=== PATIENT | male | born 1970 | race African-American/Black ===

== ENCOUNTER 2019-06-28 16:56 | Emergency (ER) | payer OTHER ==
[~2019-06-28] VITALS: Ht 182.9 cm; Wt 102.1 kg
[2019-06-28] MEDS ORDERED: LISINOPRIL20 MG PO (17:11)
[2019-06-28] MEDS ORDERED: HYDROCHLOROTHIA25 M2 PO (17:11)
[2019-06-28 17:19] LABS: HEMOGLOBIN 18.4 gm/dL (14.0-18.0); MCH 29.4 pg (26.0-34.0); MCV 86.6 fL (80.0-100.0); RBC 6.24 mil/uL (4.50-6.00); RDW 13.7 % (10.5-14.5); WBC 6.3 thou/uL (4.0-11.0)
[2019-06-28 17:29] LABS: CALCIUM 10.1 mg/dL (8.5-10.1); CREATININE 1.2 mg/dL (0.7-1.3)
[2019-06-28 17:32] LABS: INR 1.1; PROTIME 11.2 Seconds (9.3-11.4)
[2019-06-28 18:44] VITALS: BP 163/112
== END 2019-06-28 18:48 | disposition short-term general hospital (02) ==
LOC: ER 16:56
PROVIDERS: Physician Assistant
DX: H40.212 Acute angle-closure glaucoma, left eye (principal); I10 Essential (primary) hypertension; M10.9 Gout, unspecified; F17.210 Nicotine dependence, cigarettes, uncomplicated

== ENCOUNTER 2019-07-25 01:35 | Emergency (ER) | payer OTHER ==
[~2019-07-25] VITALS: Ht 177.8 cm; Wt 102.1 kg
[~2019-07-25 01:35] MED LIST: HYDROCHLOROTHIA25 M2 PO; LISINOPRIL20 MG PO
[2019-07-25] MEDS ORDERED: NORCO 5-325 TA1 EAC1 PO (03:49)
[2019-07-25] MEDS ORDERED: LISINOPRIL20 MG PO (03:54)
[2019-07-25] MEDS ORDERED: HYDROCHLOROTHIA25 M2 PO (03:54)
[2019-07-25 04:10] VITALS: BP 109/72
== END 2019-07-25 04:12 | disposition home or self-care (01) ==
LOC: ER 01:35
DX: H40.9 Unspecified glaucoma (principal); I10 Essential (primary) hypertension; M10.9 Gout, unspecified; F17.210 Nicotine dependence, cigarettes, uncomplicated

== ENCOUNTER 2019-07-27 03:57 | Emergency (ER) | payer OTHER ==
[~2019-07-27] VITALS: Ht 175.3 cm; Wt 102.1 kg
[~2019-07-27 03:57] MED LIST changes: +NORCO 5-325 TA1 EAC1 PO
[2019-07-27 05:51] VITALS: BP 134/95
== END 2019-07-27 05:52 | disposition home or self-care (01) ==
LOC: ER 03:57
DX: H40.9 Unspecified glaucoma (principal); I10 Essential (primary) hypertension; M10.9 Gout, unspecified; F17.210 Nicotine dependence, cigarettes, uncomplicated

== ENCOUNTER 2019-10-26 16:44 | Emergency (ER) | payer OTHER ==
[~2019-10-26] VITALS: Ht 180.3 cm; Wt 100.7 kg
[2019-10-26] MEDS ORDERED: HYDROCHLOROTHIA25 M2 PO (17:13)
[2019-10-26] MEDS ORDERED: ZESTRIL40 MG PO (17:13)
[2019-10-26 17:31] VITALS: BP 131/87
== END 2019-10-26 17:31 | disposition home or self-care (01) ==
LOC: ER 16:44
DX: I10 Essential (primary) hypertension (principal); M10.9 Gout, unspecified; F17.210 Nicotine dependence, cigarettes, uncomplicated

== ENCOUNTER 2020-01-19 14:04 | Emergency (ER) | payer OTHER ==
[~2020-01-19] VITALS: Ht 180.3 cm; Wt 104.3 kg
[~2020-01-19 14:04] MED LIST changes: +ZESTRIL40 MG PO
[2020-01-19 14:47] LABS: ABSOLUTE NEUTROPHILS 8.1 thou/uL (1.4-8.2); BASOPHILS 0.5 % (0.0-2.0); EOSINOPHILS 0.1 % (0.0-3.0); HEMOGLOBIN 16.8 gm/dL (14.0-18.0); LYMPHOCYTES 11.9 % (24.0-44.0); MCH 30.1 pg (26.0-34.0); MCHC 34.9 g/dL (28.0-37.0); MCV 86.3 fL (80.0-100.0); MONOCYTES 11.3 % (1.0-8.0); PLATELET COUNT 364 thou/uL (150-400); POLYS 76.2 % (36.0-66.0); RBC 5.57 mil/uL (4.50-6.00); RDW 13.8 % (10.5-14.5); WBC 10.6 thou/uL (4.0-11.0)
[2020-01-19 14:58] LABS: CALCIUM 9.3 mg/dL (8.5-10.1); CREATININE 1.3 mg/dL (0.7-1.3); POTASSIUM 3.4 mmol/L (3.5-5.1)
[2020-01-19] MEDS ORDERED: HYDROCODON-ACE1 EAC7 PO (15:44)
[2020-01-19] MEDS ORDERED: INDOMETHACIN 5050 M1 PO (15:44)
[2020-01-19 16:01] VITALS: BP 155/94
== END 2020-01-19 16:01 | disposition home or self-care (01) ==
LOC: ER 14:04
PROVIDERS: Nurse Practitioner
DX: M10.062 Idiopathic gout, left knee (principal); M10.072 Idiopathic gout, left ankle and foot; I10 Essential (primary) hypertension; F17.210 Nicotine dependence, cigarettes, uncomplicated; Z79.899 Other long term (current) drug therapy

== ENCOUNTER 2020-04-27 23:43 | Emergency (ER) | payer OTHER ==
[~2020-04-27] VITALS: Ht 180.3 cm; Wt 102.1 kg
[~2020-04-27 23:43] MED LIST changes: +HYDROCODON-ACE1 EAC7 PO; +INDOMETHACIN 5050 M1 PO
[2020-04-28 00:13] VITALS: BP 157/96
== END 2020-04-28 02:01 | disposition left against medical advice (07) ==
LOC: ER 23:43
DX: R22.0 Localized swelling, mass and lump, head (principal); Z53.21 Procedure and treatment not carried out due to patient leaving prior to being seen by health care provider

== ENCOUNTER 2020-08-16 23:28 | Inpatient (IN) | payer OTHER ==
[~2020-08-16] VITALS: Ht 182.9 cm; Wt 102.2 kg
--- NOTE | ~2020-08-16 | H ---
[facility] [place] [address] HISTORY AND PHYSICAL Name: WILFREDO CARLTON Room #: 160-1 ADM IN M.R.#: [id number] Admission: 08/17/20 Attend Phys: Crow Singh MD, Discharge: Date of : 66 Report #: [id number] THIS REPORT FOR: cc: FAM - No family physician/PCP FAM - No family physician/PCP Crow Singh MD [facility] ~ HISTORY OF PRESENT ILLNESS: The patient is a 49-year-old male. He presents to our Emergency Room with a sudden onset of significant substernal chest pain associated with diaphoresis and mild shortness of breath. He has no prior cardiac history. There is an anterior wall ____ of injury on the EKG with reciprocal ST depression. No prior history of this except for some warning of chest pain 2 nights prior he states when he was also at home, he was playing with his grandson Walmoo around 11:00 p.m. He takes hypertensive medications intermittently. He came in hypertensive at 200 systolic. He is improved with heparin and nitro. Also, received aspirin and Lipitor. HOME MEDICATIONS: Lisinopril, HCTZ. PAST MEDICAL HISTORY: Positive for the hypertension. PAST SURGICAL HISTORY: No prior surgeries. SOCIAL HISTORY: He is , he has children. He smokes a few cigarettes a day, very intermittent alcohol use. FAMILY HISTORY: Mom has longstanding history of coronary artery disease. REVIEW OF SYSTEMS: Negative except for stated above with some occasional nocturia. PHYSICAL EXAMINATION: VITAL SIGNS: Blood pressure initially 200. Blood pressure currently 170/90, pulse 60s. HEENT: Eyes reveal xanthelasmas. He has somewhat red injected eyes, but no alcohol tonight. Pharynx is clear. NECK: Shows preserved upstrokes, without JVD or bruits. LUNGS: Clear. CARDIOVASCULAR: Regular rate and rhythm. S1, S2. ABDOMEN: Slightly protuberant, nontender. EXTREMITIES: No edemas. Pulses intact. NEUROLOGIC: Nonfocal. SKIN: Warm and dry without xanthoma or ulcer. MUSCULOSKELETAL: No gross joint deformity. ASSESSMENT: 1. Acute anterior wall myocardial infarction/stemi. [facility] [address] [place] [address] HISTORY AND PHYSICAL Name: WILFREDO CARLTON Room #: 160-1 ADM IN .R.#: [id number] Admission: 08/17/20 Attend Phys: Crow Singh MD, Discharge: Date of : 66 Report #: [id number] 2. Hypertension. 3. Suspected hypercholesterolemia. 4. Tobacco use. RECOMMENDATIONS AND PLAN: We will proceed emergently to the catheterization lab for diagnostic and possible intervention. Aspirin, 4000 unit bolus of heparin, nitro, beta jose luis 5 mg IV was given and 80 mg of Lipitor. We will proceed emergently. Risks, benefits, alternatives were discussed with the patient. No current family here. We will proceed on. By: 0032 0046 Crow Singh MD, FACC /nt
[2020-08-16 23:32] VITALS: BP 203/119
[2020-08-17] VITALS (14 sets, daily range): BP systolic 106–196; BP diastolic 66–117
[2020-08-17 00:05] LABS: ABSOLUTE NEUTROPHILS 3.4 thou/uL (1.4-8.2); BASOPHILS 1.3 % (0.0-2.0); EOSINOPHILS 5.6 % (0.0-3.0); HEMATOCRIT 49.8 % (42.0-52.0); HEMOGLOBIN 16.4 gm/dL (14.0-18.0); LYMPHOCYTES 50.3 % (24.0-44.0); MCH 29.2 pg (26.0-34.0); MCHC 32.9 g/dL (28.0-37.0); MCV 88.8 fL (80.0-100.0); MONOCYTES 9.1 % (1.0-8.0); PLATELET COUNT 336 thou/uL (150-400); POLYS 33.7 % (36.0-66.0); RBC 5.61 mil/uL (4.50-6.00); RDW 13.7 % (10.5-14.5); WBC 10.1 thou/uL (4.0-11.0)
[2020-08-17 00:07] LABS: CALCIUM 8.9 mg/dL (8.5-10.1); CREATININE 1.4 mg/dL (0.7-1.3)
--- NOTE | 2020-08-17 00:13 | NUR ---
DR. AYALA TO BEDSIDE
[2020-08-17 00:17] LABS: ALBUMIN 3.7 g/dL (3.4-5.0); TOTAL BILIRUBIN 0.4 mg/dL (0.2-1.0); TOTAL PROTEIN 7.8 g/dL (6.4-8.2)
[2020-08-17 00:18] LABS: TROPONIN-I 0.6 ng/mL (<0.06)
--- NOTE | 2020-08-17 00:19 | NUR ---
CARGO VESSEL STEWARDESS TEAM JUST NOW ARRIVING TO BEDSIDE TO COLLECT PATIENT
--- NOTE | 2020-08-17 02:21 | NUR ---
PT POST CATH DONE. PT CAME FROM THE [facility] [employer]. LUNGS CLEAR ON ROOM AIR. BRADYCARDIA NOTED. VITALS TAKEN PER PROTACAL FOR POST CATH. GROIN SITE ON RIGHT SIDE IS DRY AND INTACT NO HEMATOMA NOTED. PT IS PLEASANT. SLEEPY AFTER PROCEDURE POST. PLAN OF CARE DISCUSSED WITH PT. SCDS ON BILATERAL. AND BEDREST POST PROCEDURE AT THIS TIME. WILL CONTINUE ONGOING NURSING CARE AT THIS TIME. LABS AND EKG ORDERED FOR AM PLACED ORDER.
[2020-08-17 05:07] LABS: BASOPHILS 0.7 % (0.0-2.0); HEMATOCRIT 45.3 % (42.0-52.0); LYMPHOCYTES 35.4 % (24.0-44.0); MCH 29.3 pg (26.0-34.0); MCV 88.9 fL (80.0-100.0); MONOCYTES 6.2 % (1.0-8.0); PLATELET COUNT 267 thou/uL (150-400); POLYS 54.7 % (36.0-66.0); RDW 13.7 % (10.5-14.5); WBC 5.4 thou/uL (4.0-11.0)
[2020-08-17 05:16] LABS: CALCIUM 8.3 mg/dL (8.5-10.1); CREATININE 1.3 mg/dL (0.7-1.3); POTASSIUM 4.3 mmol/L (3.5-5.1)
[2020-08-17 05:52] LABS: TROPONIN-I 2.51 ng/mL (<0.06)
--- NOTE | 2020-08-17 07:13 | EKG ---
[address] [place] [address] ELECTROCARDIOGRAM REPORT Name: WILFREDO CARLTON Room #: 208-P ADM IN M.R.#: [id number] Admission: 08/17/20 Attend Phys: Crow Singh MD, Discharge: Date of : 66 Report #: [id number] [facility] ED Test Date: 2020-08-16 Test Time: 23:33:07 Pat Name: WILFREDO CARLTON Department: Room: 208 Gender: M [employer]: ADDIS : 1970 Requested By: Cale Baltazar Order Number: [id number] MD: Tavo Jordan Measurements Intervals [place] Rate: 65 P: 71 AK: 173 QRS: -22 QRSD: 80 T: 10 QT: 371 QTc: 386 Interpretive Statements Sinus rhythm Probable left atrial enlargement Borderline left axis deviation Anterolateral infarct, acute (LAD) Baseline wander in lead(s) I,III,aVL,aVF,V2,V3,V4,V5,V6 No previous ECG available for comparison Electronically Signed On 08-17-2020 7:12:59 POST FRAMER by Tavo Jordan [email or web address] <ELECTRONICALLY SIGNED> By: Tavo Jordan MD, FACC 08/17/20 0712 2333 2333 Tavo Jordan MD, [facility] /EPI
--- NOTE | 2020-08-17 07:36 | EKG ---
[place] [address] [facility] [employer] [place] [address] ELECTROCARDIOGRAM REPORT Name: WILFREDO CARLTON Room #: 208-P ADM IN M.R.#: [id number] Admission: 08/17/20 Attend Phys: Crow Singh MD, Discharge: Date of : 66 Report #: [id number] [facility] Test Date: 2020-08-17 Test Time: 07:17:45 Pat Name: WILFREDO CARLTON Department: Room: 208 Gender: M Distribution Associate: SBJCARLOS : 1970 Requested By: Crow Singh Order Number: [id number] MD: Javed Cabral Measurements Intervals [place] Rate: 51 P: 44 AK: 189 QRS: 48 QRSD: 83 T: 65 QT: 450 QTc: 415 Interpretive Statements Sinus rhythm Anteroseptal infarct, age indeterminate Compared to ECG 08/16/2020 23:33:07 Anterior injury pattern is no longer present Electronically Signed On 08-17-2020 7:35:58 AGRONOMY SUPERVISOR by Javed Cabral [email or web address] <ELECTRONICALLY SIGNED> By: Javed Cabral MD, [facility] 08/17/2035 6 6 Javed Cabral MD, [facility] /EPI
[2020-08-17 08:21] LABS: CHOLESTEROL 190 mg/dL (<200); HDL CHOLESTEROL 67 mg/dL (>40); LDL CHOLESTEROL 100 mg/dL (<100); TC:HDL 2.8 Ratio (Not establshd); TRIGLYCERIDE 115 mg/dL (<150); VLDL 23 mg/dL (<40)
--- NOTE | 2020-08-17 09:34 | 2DMMODE ---
[facility] [address] 2 D/M-MODE ECHOCARDIOGRAM Name: WILFREDO CARLTON Room #: 208-P ADM IN M.R.#: [id number] Admission: 08/17/20 Attend Phys: Crow Singh MD, Discharge: Date of : 66 Report #: [id number] THIS REPORT FOR: cc: FAM - No family physician/PCP FAM - No family physician/PCP Jose Camacho MD ~ APPROVED REPORT Study performed: 08/17/2020 08:24:57 EXAM: Comprehensive 2D, Doppler, and color-flow Echocardiogram Patient Location: Bedside Room #: 208 Status: routine BSA: 2.24 HR: 46 bpm BP: 122/66 mmHg Rhythm: Sinus Bradycardia Other Information Study Quality: Good Indications Chest pain/STEMI status post PCI. Hx: HTN, HLD, tobacco abuse. 2D Dimensions RVDd: 37.54 mm IVSd: 13.41 (7-11mm) LVOT Diam: 20.79 (18-24mm) LVDd: 49.03 mm PWd: 12.63 (7-11mm) Ascending Ao: 33.96 (22-36mm) LVDs: 30.15 (25-40mm) Left Atrium: 36.71 (27-40mm) Aortic Root: 35.89 mm Volumes Left Atrial Volume (Systole) Single Plane 4CH: 44.28 mL Single Plane 2CH: 55.55 mL LA ESV Index: 24.00 mL/m2 Aortic Valve AoV Peak Raghav.: 1.56 m/s AO Peak Gr.: 9.79 mmHg LVOT Max P.38 mmHg LVOT Max V: 1.05 m/s [facility] [address] [place] [address] 2 D/M-MODE ECHOCARDIOGRAM Name: WILFREDO CARLTON Room #: 208-P [facility] IN [facility].#: [id number] Admission: 08/17/20 Attend Phys: Crow Singh, Discharge: Date of : 66 Report #: [id number] [id number] Vmax: 2.27 cm2 Mitral Valve E/A Ratio: 1.5 MV Decel. Time: 217.06 ms MV E Max Raghav.: 0.80 m/s MV A Raghav.: 0.55 m/s MV PHT: 62.95 ms IVRT: 83.04 ms Pulmonary Valve PV Peak Raghav.: 0.90 m/s PV Peak Gr.: 3.21 mmHg Pulmonary Vein P Vein S: 0.78 m/s P Vein A: 0.42 m/s P Vein D: 0.56 m/s P Vein A Dur.: 152.2 msec P Vein S/D Ratio: 1.39 Tricuspid Valve TR Peak Raghav.: 2.23 m/s RAP Estimate: 5.00 mmHg TR Peak Gr.: 20.00 mmHg PA Pressure: 25.00 mmHg Left Ventricle The left ventricle is normal size. Regional wall motion abnormalities are noted. Mild left ventricular hypertrophy. Left ventricular systolic function is mild to moderately decreased. LVEF is 40-45%. Moderate diastolic dysfunction is present (pseudonormal filling). Right Ventricle The right ventricle is normal size. The right ventricular systolic function is normal. Atria The left atrium size is normal. The right atrium size is normal. Aortic Valve The aortic valve is normal in structure. Leaflets are mildly thickened. Moderate aortic regurgitation There is no aortic valvular stenosis. Mitral Valve The mitral valve is normal in structure. Trace mitral regurgitation. No evidence of mitral valve stenosis. [facility] [address] [place] [address] 2 D/M-MODE ECHOCARDIOGRAM Name: WILFREDO CARLTON Room #: 208-P [facility] IN .R.#: [id number] Admission: 08/17/20 Attend Phys: Crow Singh, Discharge: Date of : 66 Report #: [id number] Tricuspid Valve The tricuspid valve is normal in structure. Trace tricuspid regurgitation. Estimated PAP is 25mmHg. Pulmonic Valve The pulmonary valve is normal in structure. Mild pulmonic regurgitation. Great Vessels The aortic root is normal in size. The ascending aorta is normal in size. IVC is normal in size and collapses >50% with inspiration. Pericardium There is no pericardial effusion. <Conclusion> The left ventricle is normal size. Mild left ventricular hypertrophy. Left ventricular systolic function is mild to moderately decreased. Moderate diastolic dysfunction is present (pseudonormal filling). The right ventricle is normal size. The left atrium size is normal. Moderate aortic regurgitation Trace tricuspid regurgitation. Estimated PAP is 25mmHg. <ELECTRONICALLY SIGNED> By: Jose Camacho MD 08/17/2034 3 3 Jose Camacho MD /INF
[2020-08-17] MEDS ORDERED: COZAAR 25 MG TA25 M1 PO (11:54)
[2020-08-17] MEDS ORDERED: LIPITOR40 MG PO (11:54)
[2020-08-17] MEDS ORDERED: ASPIRIN325 PO (11:54)
[2020-08-17] MEDS ORDERED: EFFIENT10 MG PO (11:54)
--- NOTE | 2020-08-17 16:28 | NUR ---
[employer] F[employer] visited with the pt at bedside. cm consult rec'd as the pt does not have health ins or a pcp. Pt indicates he is currently unemployed but has a home and a car. He has utlized [facility] in the past and even had their gold card discount. Flyer for [employer] given along with the [employer] coupon card. Encouragement given for him to f/u with [facility] for a pcp and [facility] financial services so he can get an appt with their cardilogy group. He is aware that our payroll supervisor will see him for a one time f/u. He does have scripts that he gets refilled per [facility]. He has supportive family. Medasssit here as well and have [place] with him. He is indep with gait and adl's and appears knowledgable about resources. No other needs noted. Pt anxious to go home soon.
--- NOTE | 2020-08-17 18:33 | NUR ---
RECEIVED PT'S CARE AROUND 07; PT. ON BED; ALERT; ON INTEGRELIN GTT; SB ON THE MONITOR; PER OUMAR CONTROLS DESIGN ENGINEER ADMINISTER 2 BOTTLES OF INTEGRELIN; SHEETER HELPER [facility]. UNDERSTANDING; DURING AM ASSESSMENT PT. AOX4; NO C/O PAIN; AM MEDICATIONS GIVEN; EDUCATED ABOUT IT; [facility]; EDUCATED ABOUT TAKING SOME TIME WHEN GETTING UP FROM BED; [facility]; EDUCATED ABOUT USING URINAL; [facility]; ABLE TO AMBULATE WITHIN THE ROOM THROUGH THE DAY; NO C/O PAIN; ASSESSMENT CHARGED; FOLLOWING POC; WILL PASS ON REPORT;
[2020-08-18 03:50] VITALS: BP 136/74
[2020-08-18 03:58] LABS: CALCIUM 8.6 mg/dL (8.5-10.1); CREATININE 1.3 mg/dL (0.7-1.3); POTASSIUM 4.1 mmol/L (3.5-5.1)
[2020-08-18 07:49] VITALS: BP 118/76
--- NOTE | 2020-08-18 11:22 | NUR ---
ASSESSMENT CHARTED. PT ALERT AND ORIENTED. VSS. DENIED HAVING PAIN OR DISCOMFORT. RIGHT GROIN INCISION C/D/I. NO HEMATOMA NOTED. SEEN BY DR. BARKER. ORDERS GIVEN TO DISCHARGE PT TO HOME. DISCHARGE INSTRUCTIONS AND GIVEN TO PT. PT VERBERLISED UNDERSTANDING.
--- NOTE | 2020-08-19 15:22 | CATHLAB ---
[facility] [address] INVASIVE PROCEDURE REPORT Name: WILFREDO CARLTON Room #: 208-P [facility] IN M.R.#: [id number] Admission: 08/17/20 Attend Phys: Crow Singh MD, Discharge: 08/18/20 Date of : 66 Report #: [id number] THIS REPORT FOR: cc: FAM - No family physician/PCP FAM - No family physician/PCP Crow Singh MD [facility] ~ APPROVED REPORT Study performed: 08/17/2020 00:19:54 Patient Details Patient Status: ED Room #: The patient is a 49 year-old male Event Personnel Crow Singh Internal Medicine Doctor, Bethany Rao RN RN, Felix Black RTR Monitor, Elvia White RTR, STRUCTURAL ANALYST Scrub Procedures Performed Art Access - R femoral artery* Left Heart Cath w/or w/o Coronaries 7665001 [facility] NEO Revasc AMI Total/Sub Single LAD C9606 AMIREVSING 27667 Initial Mod Sed Same Phys/QHP Gr5y 523700 90301 Mod Sed Same Phys/QHP Ea 294467 Hemostasis w/ Mynx Abdominal Aortography 379160 Indication STEMI , Chest pain Risk Factors Family History, Hypertension Procedure Narrative The Right Groin^ was infiltrated with 1% Lidocaine subcutaneous anesthesia. A PINNACLE 6FR Sheath #[id number] sheath was inserted into the RFA^. Coronary angiography was performed using coronary diagnostic catheters. The right coronary system was accessed and visualized with a JR4 catheter. The left coronary system was accessed and visualized with a JL4 catheter. The left ventricle was accessed and visualized with a PIGTAIL catheter. Left ventriculogram was performed in 30 degree projection. An aortogram of the abdominal aorta was performed. Closure device was deployed with a 6 Fr MYNXGRIP 6/7F #[id number]. Hemostasis was obtained with manual pressure following sheath removal without any complications. The patient tolerated the [facility] [address] [place] [address] INVASIVE PROCEDURE REPORT Name: BRANDTWILFREDO Room #: 208-P [facility] IN M.R.#: [id number] Admission: 08/17/20 Attend Phys: Crow Singh, Discharge: 08/18/20 Date of : 66 Report #: [id number] procedure well and there were no complications associated with the procedure. There was no hematoma. Intraoperative Conscious Sedation Sedation start time: 26 Case end Time: 0140 Fentanyl 100 mcg Versed 2 mg Fluoro Time: 17.24 minutes Dose: DAP 67549.80 cGycm2 1866 mGy Contrast Type and Amount: Visipaque 265 ml Hemodynamics The aortic pressure is 114/71 mmHg with a mean of 80 mmHg. The left ventricular pressure is 121/6 mmHg with a mean of mmHg. The left ventricular end diastolic pressure is 22 mmHg. PCI Technique Lesion Percutaneous coronary intervention was performed on the mid left anterior descending artery segment. A LAUNCHER 6FR EBU 3.75 #[id number] Guide Catheter was used to engage the ostium. A Luge Wire .014 x 182CM #[id number] Interventional Guidewire was used to cross the lesion. BALLOON DILATION A Balloon catheter Sprinter OTW 2.75 x 12 #[id number] was inserted and inflated up to 6.00atm for 8seconds. Additional Inflation: 14.00atm for 27seconds. Additional Inflation: 16.00atm for 17seconds. Additional Inflation: 14 carrei for 12 sec. Additional Inflation: 18 carrie for 16 sec. Additional Inflation: 18 carrie for 17 sec. STENT DEPLOYMENT A drug-eluting stent XIENCE ALISHA RX 3.25 X 18 #[id number] was inserted and inflated up to 16.00atm for 20seconds. Additional Inflation: 18.00atm for 22seconds. POST STENT DEPLOYMENT BALLOON DILATION A Balloon catheter TREK NC OTW 3.5 X 12 #[id number] was inserted and inflated up to 20.00atm for 23seconds. Additional Inflation: 20.00atm for 15seconds. Additional Inflation: 22.00atm for 15seconds. PCI Technique Lesion 2 Percutaneous Coronary Intervention was performed on the first diagnonal branch segment. A LAUNCHER 6FR EBU 3.75 #[id number] Guide Catheter was used to engage the ostium. A Luge Wire .014 x 182CM #[id number] Interventional Guidewire was used to cross the [address] [address] INVASIVE PROCEDURE REPORT Name: WILFREDO CARLTON Room #: 208-P [facility] IN M.R.#: [id number] Admission: 08/17/20 Attend Phys: Crow Singh, Discharge: 08/18/20 Date of : 66 Report #: [id number] lesion. Balloon Dilation A Balloon catheter Sprinter OTW 2.25 x 12 #[id number] was inserted and inflated up to 14.00atm for 23seconds. Additional Inflation: 18.00atm for 31seconds. Conclusion #1. Successful PTCA stent of a subtotal proximal LAD infarct vessel with placement of a 3 0.25 x 18 Alisha Jason stent AUBREY grade III flow 0% residual. Moderate distal disease in this LAD. Sikhism of normal flow. #2 successful PTCA of a subtotal ostial diagonal branch at this left main occlusion with a 2-5 balloon with marked improvement in luminal diameter remains patent after stent nursing home AUBREY grade III flow. #3 left main free of disease giving rise to LAD and circumflex #4 the circumflex OM is moderately disease its large but anatomically nondominant. No high-grade occlusive disease #5 dominant right coronary with mild to moderate irregularity 3040% mid vessel. Anatomically dominant PDA is well preserved. #6 normal left jugular size with anterior apical inferior apical hypokinesis EF 45% range. #7 abdominal aorta is tortuous brisk flow no aneurysm is noted. Recommendations and plan: Continue aggressive risk factor modification. Sikhism of normal flow in this LAD diagonal system.'s is an acute infarct vessel. Resolution of chest pain and EKG changes. To be 3 a inhibitor is continued transferred to CCU in stable but guarded condition. Following post coronary stent protocol. <ELECTRONICALLY SIGNED> By: Crow Singh MD, [facility] 08/19/20 1522 1522 1522 Crow Singh MD, FACC /INF
== END 2020-08-18 11:25 | disposition home or self-care (01) | DRG 247 ==
LOC: ER 23:28 → TBACV 08-17 00:22 → 2N 08-17 03:30
PROVIDERS: Emergency Medicine; Nurse Practitioner Adult Health; ADMIT Internal Medicine Cardiovascular Disease; ATTEND Internal Medicine Cardiovascular Disease
PROC: 027135Z Dilation of Coronary Artery, Two Arteries with Two Drug-eluting Intraluminal Devices, Percutaneous Approach (ICD-10-PCS; principal; 2020-08-17)
PROC: 4A023N7 Measurement of Cardiac Sampling and Pressure, Left Heart, Percutaneous Approach (ICD-10-PCS; principal; 2020-08-17)
PROC: B211YZZ Fluoroscopy of Multiple Coronary Arteries using Other Contrast (ICD-10-PCS; principal; 2020-08-17)
PROC: B215YZZ Fluoroscopy of Left Heart using Other Contrast (ICD-10-PCS; principal; 2020-08-17)
PROC: B410YZZ Fluoroscopy of Abdominal Aorta using Other Contrast (ICD-10-PCS; principal; 2020-08-17)
DX: I21.09 ST elevation (STEMI) myocardial infarction involving other coronary artery of anterior wall (principal); I42.9 Cardiomyopathy, unspecified; I10 Essential (primary) hypertension; E78.5 Hyperlipidemia, unspecified; F17.210 Nicotine dependence, cigarettes, uncomplicated; M10.9 Gout, unspecified; Z79.899 Other long term (current) drug therapy; I25.2 Old myocardial infarction; Z82.49 Family history of ischemic heart disease and other diseases of the circulatory system; Z28.21 Immunization not carried out because of patient refusal
CPT/HCPCS: 10081